=== PATIENT | female | born 1960 | race Caucasian/White ===

== ENCOUNTER 2016-12-29 09:35 | Day surgery (SDC) | payer MEDICARE, OTHER ==
[2016-12-27 13:34] VITALS: BMI 32.4
[2016-12-29] MEDS ORDERED: ACETAMINOPHEN 1000 MG/100 ML VIAL (NON FORMULARY) IVPB ONE (10:21)
[2016-12-29] MEDS ORDERED: IBUPROFEN 800 MG/8 ML IJ IVPB PRN (10:21)
--- NOTE | 2016-12-29 10:21 | HP ---
History & Physical Update - History History: No Change - Physical Physical: No Change - Assessment Assessment: No Change - Plan Plan: No Change
[2016-12-29] MEDS ORDERED: DEXTROSE 5%-0.45% SALINE 1,000 ML IV SCH (10:30)
[2016-12-29] MEDS ORDERED: PROMETHAZINE HCL 25 MG/1 ML VIAL IVPUSH PRN (12:03)
[2016-12-29] MEDS ORDERED: oxyCODONE HCL 5 MG TABLET PO PRN (12:03)
[2016-12-29] MEDS ORDERED: ONDANSETRON 4 MG/2 ML VIAL IVPUSH PRN (12:03)
[2016-12-29] MEDS ORDERED: VASOPRESSIN 20 UNITS/ML VIAL IV ONE ×2 (12:10→12:14)
[2016-12-29] MEDS ORDERED: LACTATED RINGERS SOLUTION 1,000 ML IV SCH (12:15)
[2016-12-29] MEDS ORDERED: MIDAZOLAM HCL 2 MG/2 ML SINGLE DOSE VIAL ONE (12:20)
[2016-12-29] MEDS ORDERED: PROPOFOL 20 ML ONE (12:24)
[2016-12-29] MEDS ORDERED: ceFAZolin SODIUM 1 GM VIAL IVPB ONE (12:28)
[2016-12-29] MEDS ORDERED: ePHEDrine SULFATE 50 MG/1 ML AMPULE ONE (12:52)
[2016-12-29] MEDS ORDERED: ACETAMINOPHEN INJECTION 100 ML IVPB ONE (14:39)
[2016-12-29 15:49] VITALS: TEMP 98.4
[2016-12-29] MEDS ORDERED: oxyCODONE HCL 5 MG TABLET ONE (15:55)
[2016-12-29] MEDS ORDERED: oxyCODONE HCL 5 MG TABLET PO ONE (15:57)
[2016-12-29 17:57] VITALS: BP 104/62; PULSE 91
--- NOTE | 2017-01-13 09:53 | OP ---
DATE OF OPERATION: 12/29/2016 PREOPERATIVE DIAGNOSIS: Stress urinary incontinence. POSTOPERATIVE DIAGNOSIS: Stress urinary incontinence. PROCEDURE: Suburethral sling placement and cystoscopy. ANESTHESIA: General. SURGEON: Calixto Desai MD ANESTHESIOLOGIST: Yesenia Paris MD DRAINS: Darden catheter. ESTIMATED BLOOD LOSS: Minimal. PREOPERATIVE INDICATIONS: The patient is a 56-year-old female with stress urinary incontinence as confirmed on exam and history. She comes to the OR for suburethral sling placement. DESCRIPTION OF PROCEDURE: The patient was brought to the OR, placed on the table in supine position, given general anesthesia and IV antibiotics and placed in the modified lithotomy position. The groins were prepped and draped sterilely. Timeout was performed. Darden catheter was placed. The portion of the urethra was identified and marked with a marking pen. The vaginal mucosa was injected with pitressin to hydrodissect. Incision was made over the middle third of the urethra, and the vaginal mucosa was sharply dissected off the periurethral tissues in a lateral fashion. Bladder was then emptied. The trocar with one side of the sling was placed under finger control through the incision to the right obturator canal. This was then done on the left side as well. No buttonholing mucosa was seen. Cystoscopy was performed which revealed no evidence of perforation. Both ureteral orifices had efflux. The sling was tightened appropriately. Excess suture was removed. The incision was closed with 2-0 Vicryl suture. Packing and Darden catheter left in place. Walter [id number]
== END 2016-12-29 18:00 | disposition home or self-care (01) ==
LOC: JASU-SURG 09:35
PROVIDERS: ATTEND Urology
PROC: 0TSD0ZZ Reposition Urethra, Open Approach (ICD-10-PCS; principal; 2016-12-29 11:00)
DX: N39.3 Stress incontinence (female) (male) (principal)
CPT/HCPCS: 94760